=== PATIENT | male | born 1970 | race Caucasian/White ===

== ENCOUNTER 2019-02-07 10:33 | Inpatient (IN) ==
[2019-02-07] MEDS ORDERED: TYLENOL PO ONE (10:56)
[2019-02-07 11:25] LABS: INFLUENZA A NEGATIVE (NEGATIVE); INFLUENZA B NEGATIVE (NEGATIVE)
[2019-02-07 11:27] LABS: BASO# 0.02 X1000 (0.0-0.2); BASO% 0.1 % (0.0-0.8); HEMOGLOBIN 12.8 g/dL (14.0-18.0); IMM GRAN# 0.08 X1000 (0.0-0.04); IMM GRAN% 0.5 % (0.0-0.5); LYMPH# 0.87 X1000 (1.2-3.4); LYMPH% 5.9 % (20.5-51.1); MCHC 35.6 g/dL (33-37); MONO# 1.84 X1000 (0.11-0.59); MONO% 12.4 % (1.7-9.3); MPV 9.5 FL (7.4-10.4); NEUT# 12.02 X1000 (1.4-6.5); NEUT% 81.1 % (42.2-75.2); PLT 230 X1000 (130-400); RDW 12.4 % (11.5-14.5); WBC 14.83 X1000 (4.8-10.8)
[2019-02-07 11:28] LABS: INR 1.14; PROTIME 15.2 Seconds (11.0-16.0)
[2019-02-07 11:35] LABS: BILIRUBIN URINE NEGATIVE (NEGATIVE); BLOOD URINE NEGATIVE (NEGATIVE); CLARITY CLEAR (CLEAR); COLOR YELLOW; GLUCOSE URINE NEGATIVE (NEGATIVE); KETONE URINE TRACE mg/dL (NEGATIVE); LEUKOCYTES URINE 1+ (NEGATIVE); NITRITE URINE NEGATIVE (NEGATIVE); PROTEIN URINE 1+(30 mg/dL) mg/dL (NEGATIVE); SP GRAVITY URINE 1.005; UROBILINOGEN URINE 8 mg/dL
[2019-02-07 11:36] LABS: URINE BACTERIA 2+ /HFP; URINE CAST NONE SEEN /LPF; URINE CRYSTAL NONE SEEN /HPF; URINE EPITHELIAL CELLS <10 /HPF (<10); URINE RBC <10 /HPF (<10); URINE SOURCE CLEAN CATCH; URINE YEAST PRESENT /HPF
[2019-02-07 11:41] LABS: AGAP 14; ALBUMIN 4.3 g/dL (3.5-5.0); ALKALINE PHOSPHATASE 82 U/L (32-122); BUN 15 mg/dL (8-22); CALCIUM 8.8 mg/dL (8.8-10.2); CHLORIDE 99 mmol/L (98-107); CK PROFILE 195 U/L (24-204); COSMO 275; CREATININE 0.9 mg/dL (0.7-1.2); ESTIMATED GFR > 60; GLUCOSE 147 mg/dL (70-104); GOT 26 U/L (10-34); GPT 36 U/L (10-44); POTASSIUM 3.3 mmol/L (3.5-5.1); SODIUM 136 mmol/L (136-145); TCO2 23 mmol/L (25-35); TOTAL PROTEIN 7.1 g/dL (6.3-8.3)
--- NOTE | 2019-02-07 11:43 | Diag Imaging Result Doc PS360 ---
EXAM: CT HEAD W/O CONTRAST INDICATION: HEADACHE TECHNIQUE: This exam was performed using automated exposure control, adjustment of mA or kV according to patient size, and/or use of iterative reconstruction technique. COMPARISON: None. FINDINGS: There is no definite acute infarct given the limited sensitivity of CT versus MRI. There is no discrete intracranial mass, mass effect, or intracranial hemorrhage. There is soft tissue scalp edema on the left with what appears to be a thin subgaleal hematoma. Surrounding soft tissues and bony structures are essentially unremarkable, otherwise. The calvaria is intact. IMPRESSION: 1.No evidence of acute intracranial pathology. 2.Findings suggesting a scalp contusion on the left. Please correlate clinically. Electronically signed by Panfilo Garcia 02/07/2019 11:40 AM
--- NOTE | 2019-02-07 11:45 | Diag Imaging Result Doc PS360 ---
EXAM: CHEST-1 VIEW INDICATION: fever TECHNIQUE: One view COMPARISON: None. FINDINGS: The lungs are grossly clear. There is no discrete pleural fluid collection or pneumothorax. The cardiomediastinal silhouette and central vasculature are grossly unremarkable. IMPRESSION: No evidence of acute pathology by plain radiograph. Electronically signed by Panfilo Garcia 02/07/2019 11:43 AM
[2019-02-07] MEDS ORDERED: NS 1,000 ML IV ONE (11:55)
[2019-02-07] MEDS ORDERED: TORADOL IV ONE (12:54)
--- NOTE | 2019-02-07 13:03 | PROVIDER DOCUMENTATION ---
This chart was entered by Sahil Ross Scribe, acting as scribe for Waleska Hopson MD. HPI-Headache - General Chief Complaint: Headache Stated Complaint: ELEVATED BP HEADACHE Time Seen by Provider: 02/07/19 10:37 Source: patient Allergies/Adverse Reactions: Patient Allergies Allergy/AdvReac Type Severity Reaction Status Date / Time No Known Allergies Allergy Verified 02/07/19 10:39 Home Medications: Home Medication List Medication Instructions Recorded Confirmed Last Taken Type ATORVAstatin [Lipitor] 20 mg PO DAILY 02/07/19 02/07/19 Unknown History Cyclobenzaprine [Flexeril] 10 mg PO TID 02/07/19 02/07/19 Unknown History Meloxicam 15 mg PO DAILY 02/07/19 02/07/19 02/06/19 History Olmesartan/Amlodipin/Hcthiazid 1 ea PO DAILY 02/07/19 02/07/19 Unknown History [Tribenzor 40-5-25 mg Tablet] Pantoprazole Sodium 40 mg PO DAILY 02/07/19 02/07/19 Unknown History - History of Present Illness-Headache Nature of Presenting Problem: Pt is a 48 y/o F presents to the ED with a headache, dizzy, nausea, neck pain, blurry vision. He says he BP at home was 153/103. Pt reports this is the worst headache ever and no hx of headaches. He reports working in a barn with a friend yesterday and after bending over he reports that he felt like the left side of his head was going to blow off. Pt also states 3 days ago he removed a tick from the back of his head. He says he has not taken any tylenol today. Pt denies chest pain, Abdominal pain and SOB. Headache Location: reports: global Quality of Pain: reports: aching Severity: reports: severe Timing: reports: still present Headache Context: reports: nothing Any recent trauma/injury?: reports: none Headache severity at the maximum: worst of life Headache Exacerbated by:: reports: nothing Associated Symptoms: reports: dizziness, confusion, fever/chills, nausea, vision changes. denies: short of breath, loss of consciousness, slurred speech, tingling in legs/feet, trouble walking Similar Symptoms Previously?: No Recently seen or treated by another doctor?: No Review of Systems - Adult - REVIEW OF SYSTEMS - ADULT Constitutional: reports: fever. denies: chills Eyes: reports: no symptoms reported Ears, Nose, Mouth & Throat: denies: ear pain, throat pain Cardiovascular: denies: chest pain, edema Respiratory: reports: no symptoms reported Gastrointestinal: reports: nausea. denies: abdominal pain, vomiting Genitourinary: denies: dysuria, discharge Musculoskeletal: reports: neck pain. denies: back pain Integumentary: reports: no symptoms reported Neurological: reports: dizziness/vertigo, headache/migraines. denies: numbness, slurred speech, syncope Psychiatric: reports: no symptoms reported Endocrine: reports: no symptoms reported Hematologic/Lymphatic: reports: no symptoms reported Allergic/Immunologic: reports: no symptoms reported All Other Systems: Reviewed and Negative Past History - Adult - PAST MEDICAL HISTORY-ADULT Review of Records: reports: Old Records Reviewed, Nursing Assessment Review, Medications Reviewed - SOCIAL HISTORY Substance Use: none/never Living Situation: family Physical Exam- Neurological - Physical Exam-Neuro Initial Vital Signs Reviewed: Yes General Appearance: alert, no apparent distress Eye Exam: bilateral eye: normal inspection, PERRL, EOMI HENMT: moist mucous membranes, normal ENT inspection, pharynx normal Head Injury: no evidence of injury. negative: active bleeding Neck: full range of motion, supple, normal inspection. 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 Exam: normal hearing, normal speech, PERRL Coordination/Gait: normal finger to nose, normal gait Motor/Sensory: no motor deficit, no sensory deficit, no pronator drift Neurologic: grossly normal, no motor/sensory deficits Integumentary: normal color, normal turgor, diaphoresis Psych/Mental Status: normal mood/affect, normal thought content, normal thought process, oriented x 3 - Glascow Coma Scale Best Eye Response: (4) open spontaneously Best Verbal Response: (5) oriented Best Motor Response: (6) obeys commands Total Glascow Score: 15 Progress - PLAN OF CARE/RESULTS Progress/Plan/Lab Results: Vital Signs - 8 hr 02/07/19 10:36 02/07/19 12:00 02/07/19 13:28 Temperature 102.1 F H 99.9 F H 98.5 F Pulse Rate 96 H 72 70 Respiratory Rate 20 18 20 Blood Pressure 128/72 123/64 147/66 O2 Sat by Pulse Oximetry 96 95 97 Laboratory Results - last 24 hr 02/07/19 02/07/19 02/07/19 10:44 10:44 10:44 WBC 14.83 H RBC 4.00 L Hgb 12.8 L Hct 36.0 L MCV 90.0 MCH 32.0 H MCHC 35.6 RDW Std Deviation 12.4 Plt Count 230 MPV 9.5 Immature Gran % (Auto) 0.5 Neut % (Auto) 81.1 H Lymph % (Auto) 5.9 L [place] % (Auto) 12.4 H Eos % (Auto) 0.0 Baso % (Auto) 0.1 Immature Gran # (Auto) 0.08 H Neut # (Auto) 12.02 H Lymph # (Auto) 0.87 L [place] # (Auto) 1.84 H Eos # (Auto) 0.00 Baso # (Auto) 0.02 PT 15.2 INR 1.14 PTT (Actin FS) 30.0 Sodium 136 Potassium 3.3 L Chloride 99 Carbon Dioxide 23 L Anion Gap 14 BUN 15 Creatinine 0.9 Estimated GFR/1.73 m2 > 60 BUN/Creatinine Ratio 17 Glucose 147 H Calculated Osmolality 275 Calcium 8.8 Total Bilirubin 1.30 H AST 26 ALT 36 Alkaline Phosphatase 82 Creatine Kinase 195 Troponin T Total Protein 7.1 Albumin 4.3 Globulin 3.0 Albumin/Globulin Ratio 2.0 Plasma Lactate Urine Source Urine Color Urine Clarity Urine pH Ur Specific [place] Urine Protein Urine Ketones Urine Blood Urine Nitrite Urine Bilirubin Urine Urobilinogen Urine Microscopic RBC Urine WBC Urine Microscopic WBC Ur Epithelial Cells Urine Crystals Urine Bacteria Urine Casts Urine Yeast Urine Glucose Influenza A (Rapid) Influenza B (Rapid) 02/07/19 02/07/19 02/07/19 10:44 10:44 10:44 WBC RBC Hgb Hct MCV MCH MCHC RDW Std Deviation Plt Count MPV Immature Gran % (Auto) Neut % (Auto) Lymph % (Auto) [place] % (Auto) Eos % (Auto) Baso % (Auto) Immature Gran # (Auto) Neut # (Auto) Lymph # (Auto) [place] # (Auto) Eos # (Auto) Baso # (Auto) PT INR PTT (Actin FS) Sodium Potassium Chloride Carbon Dioxide Anion Gap BUN Creatinine Estimated GFR/1.73 m2 BUN/Creatinine Ratio Glucose Calculated Osmolality Calcium Total Bilirubin AST ALT Alkaline Phosphatase Creatine Kinase Troponin T < 0.010 Total Protein Albumin Globulin Albumin/Globulin Ratio Plasma Lactate 1.0 Urine Source CLEAN CATCH Urine Color YELLOW Urine Clarity CLEAR Urine pH 7.0 Ur Specific [place] 1.005 Urine Protein 1+(30 mg/dL) A Urine Ketones TRACE Urine Blood NEGATIVE Urine Nitrite NEGATIVE Urine Bilirubin NEGATIVE Urine Urobilinogen 8 Urine Microscopic RBC <10 Urine WBC 1+ A Urine Microscopic WBC 10-20 A Ur Epithelial Cells <10 Urine Crystals NONE SEEN Urine Bacteria 2+ Urine Casts NONE SEEN Urine Yeast PRESENT Urine Glucose NEGATIVE Influenza A (Rapid) Influenza B (Rapid) 02/07/19 10:51 WBC RBC Hgb Hct MCV MCH MCHC RDW Std Deviation Plt Count MPV Immature Gran % (Auto) Neut % (Auto) Lymph % (Auto) [place] % (Auto) Eos % (Auto) Baso % (Auto) Immature Gran # (Auto) Neut # (Auto) Lymph # (Auto) [place] # (Auto) Eos # (Auto) Baso # (Auto) PT INR PTT (Actin FS) Sodium Potassium Chloride Carbon Dioxide Anion Gap BUN Creatinine Estimated GFR/1.73 m2 BUN/Creatinine Ratio Glucose Calculated Osmolality Calcium Total Bilirubin AST ALT Alkaline Phosphatase Creatine Kinase Troponin T Total Protein Albumin Globulin Albumin/Globulin Ratio Plasma Lactate Urine Source Urine Color Urine Clarity Urine pH Ur Specific [place] Urine Protein Urine Ketones Urine Blood Urine Nitrite Urine Bilirubin Urine Urobilinogen Urine Microscopic RBC Urine WBC Urine Microscopic WBC Ur Epithelial Cells Urine Crystals Urine Bacteria Urine Casts Urine Yeast Urine Glucose Influenza A (Rapid) NEGATIVE Influenza B (Rapid) NEGATIVE Orders Category Date Time Status Cardiac Monitoring DIRECTED Care 02/07/19 10:58 Active IV Insertion ORDERED Care 02/07/19 10:58 Completed Notify MD of + Sepsis Screen NOW Care 02/07/19 10:58 Active Notify Physician As Ordered Care 02/07/19 10:58 Active CHEST-1 VIEW [RAD] Stat Exams 02/07/19 10:[address] HEAD W/O CONTRAST [CT] Stat Exams 02/07/19 11:01 Completed BLOOD CULTURE [BLDCUL] Stat Lab 02/07/19 10:58 Ordered CBC WITH DIFF [HEME] Stat Lab 02/07/19 10:44 Completed CK PROFILE [SP CHEM] Stat Lab 02/07/19 10:44 Completed COMPREHENSIVE METABOLIC PANEL [CHEM] Stat Lab 02/07/19 10:[address] Stat Lab 02/07/19 10:51 Completed LACTATE, PLASMA [CHEM] Lab 02/07/19 10:44 Completed LACTATE, PLASMA [CHEM] Lab 02/07/19 14:00 Uncollected LACTATE, PLASMA [CHEM] Lab 02/07/19 17:00 Uncollected PROTIME WITH INR [COAG] Stat Lab 02/07/19 10:44 Completed PTT [COAG] Stat Lab 02/07/19 10:44 Completed TROPONIN T Stat Lab 02/07/19 10:[address] W/POSS RFLX CULT [URINALYSIS] Stat Lab 02/07/19 10:44 Completed URINE CULTURE [RM] Routine Lab 02/07/19 11:36 Ordered 0.9% Sodium Chloride Inj [Ns] 1,000 ml Med 02/07/19 11:55 Discontinued IV 999 mls/hr Acetaminophen [Tylenol] Med 02/07/19 10:56 Discontinued 1,000 mg PO NOW ONE CefTRIAXONE [Rocephin] 2 gm Med 02/07/19 13:17 Discontinued 0.9% Sodium Chloride Inj [Ns] 50 ml IV NOW Ketorolac [Toradol] Med 02/07/19 12:54 Discontinued 30 mg IV NOW ONE Oxygen Device Stat Oth 02/07/19 10:58 Active A lumbar puncture was discess with the patient and he declined. Result Diagrams: 02/07/19 10:44 02/07/19 10:44 - REASSESSMENT Reassessment #1 Time Reassessed: 12:50 Status: improving (PT FEELING A LITTLE BETTER.) - XRAY 1 XRAY Study: Chest Impression: Normal ( EXAM: CHEST-1 VIEW INDICATION: fever TECHNIQUE: One view COMPARISON: None. FINDINGS: The lungs are grossly clear. There is no discrete pleural fluid collection or pneumothorax. The cardiomediastinal silhouette and central vasculature are grossly unremarkable. IMPRESSION: No evidence of acute pathology by plain radiograph. Electronically signed by Panfilo Garcia 02/07/2019 11:43 AM 02/07/19 1143 Interpreting Physician: Panfilo Garcia MD Dictated Date/Time: 02/07/19 1143 cc: Waleska Hopson MD; Heath Tsang MD) - CT/MRI 1 CT Study: Head Impression: Abnormal (EXAM: CT HEAD W/O CONTRAST INDICATION: HEADACHE TECH NIQUE: This exam was performed using automated exposure control, adjustment of mA or kV according to patient size, and/or use of iterative reconstruction technique. COMPARISON: None. FINDINGS: There is no definite acute infarct given the limited sensitivity of CT versus MRI. There is no discrete intracranial mass, mass effect, or intracranial hemorrhage. There is soft tissue scalp edema on the left with what appears to be a thin subgaleal hematoma. Surrounding soft tissues and bony structures are essentially unremarkable, otherwise. The calvaria is intact. IMPRESSION: 1.No evidence of acute intracranial pathology. 2.Findings suggesting a scalp contusion on the left. Please correlate clinically. Electronically signed by Panfilo Garcia 02/07/2019 11:40 AM) - CONSULTS/PCP/HOSPITALIST Notification #1 *Consult/PCP/Hospitalist*: Hospitalist- Dr Cortes Time Discussed: 13:50 Reason/Comments: admission Consult Disposition: Admit (accepts) Departure - Departure Date of Disposition Decision: 02/07/19 Time of Disposition Decision: 13:51 DIAGNOSIS: Meningitis, Tick bite of scalp, UTI (urinary tract infection) Disposition: ADMITTED INPATIENT 09 Certified Medical Emergency: Emergent Condition: Stable Referrals and Follow-Ups: Heath Tsang MD [Primary Care Provider] - - Critical Care Note This patient required my direct & personal management of CC.: No Attestation - Physician/ JOSÉ MIGUEL Attestation Patient care was provided by Advanced Practice Provider:: No The physician spent face to face time with patient:: Yes Advanced Practice Provider documentation review:: Supervising physician onsite and consulted in the evaluation and care of this patient. The physician did have a face to face encounter with the patient. This chart was documented by the indicated scribe, (Sahil Ross Scribe) and accurately reflects the services I performed and decisions made by me, Waleska Varela MD, as attested by the provider's signature.
[2019-02-07] MEDS ORDERED: ROCEPHIN 2 GM in NS 50 ML IV ONE (13:17)
[2019-02-07] MEDS ORDERED: VANCOMYCIN IV PER PHARMACY MISC SCH (14:45)
[2019-02-07] MEDS ORDERED: NS 1,000 ML IV SCH (14:45)
[2019-02-07] MEDS ORDERED: ZOFRAN IV PRN (14:49)
[2019-02-07] MEDS ORDERED: TYLENOL PO PRN (14:49)
[2019-02-07] MEDS ORDERED: NS IV SCH ×3 (14:57→16:00)
[2019-02-07] MEDS ORDERED: ZOVIRAX IV SCH ×3 (14:57→16:00)
[2019-02-07] MEDS ORDERED: NORVASC PO SCH (15:00)
[2019-02-07] MEDS ORDERED: DOXYCYCLINE PO SCH (15:00)
[2019-02-07] MEDS ORDERED: APRESOLINE IV PRN ×2 (15:32→16:05)
[2019-02-07] MEDS ORDERED: NS + KCL 20 MEQ 1,000 ML IV SCH ×2 (15:35→17:00)
[2019-02-07] MEDS ORDERED: NORVASC PO ONE (16:15)
[2019-02-07] MEDS: VANCOMYCIN 2,000 MG in NS 500 ML IV SCH (16:21)
[2019-02-07] MEDS ORDERED: VANCOMYCIN 2,000 MG in NS 500 ML IV SCH (17:00)
--- NOTE | 2019-02-07 17:11 | HISTORY AND PHYSICAL ---
CHIEF COMPLAINT: Headache, fever. HISTORY OF PRESENT ILLNESS: A 48-year-old male with a past medical history of hypertension, dyslipidemia presented to the emergency department with the chief complaint of headache, dizziness, nausea that started yesterday in the afternoon, associated with neck pain, blurry vision/photophobia, fever and. As as per the patient, he was working yesterday in the afternoon and he started having a strong headache mostly on the left side of the head. So he went home and tried to rest himself. He took a Tylenol. He went home to try to rest, he took a Tylenol but he continues having headache, fever and chills. Today, in the morning the noticed that this patient also was a little bit confused, so they decided to come to the emergency department. As per the , 8 to 9 days ago a tick was removed from the back of his head on the left side, and apparently the tick probably was there for a couple days before removal. Because all the symptoms including headache, confusion, nausea, chills, fever and some neck pain, we decided to go ahead and give him a high dose off ceftriaxone and start this patient on vancomycin. I personally contacted Dr. Hines from Infectious Disease Department who suggested also to start this patient on acyclovir 10 mg/kg every 8 hours and also doxycycline which can be given p.o. In the emergency department, the ER doctor offered to perform a LP, but the patient refused due to his back surgeries. He does have some metal in his back. In the emergency department, he was found to have a temperature of 102.1, white blood cell of 14.8, potassium level of 3.3 and a slightly elevated bilirubin of 1.3 with normal LFTs. Urinalysis showed some protein, white blood cell and 2+ bacteria, but he does not have urinary symptoms. We are going to get a blood culture and urine culture as well. This patient will be transferred to [facility] for evaluation. He will be evaluated by Infectious Disease Department hopefully in the morning and I already talked to the patient and the at the bedside about performing a lumbar puncture tomorrow with interventional radiologist. He seems to be stable at this moment. He is completely alert and oriented x 3, mild headache. The patient denies abdominal pain, diarrhea, constipation, chest pain, any focal weakness. REVIEW OF SYSTEMS: All the 14 points of review of systems were reviewed. All of them negative except as per HPI. 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 PAST FAMILY HISTORY: Mother with heart valve problems/replacement, history of C. difficile, dementia. Father with lung cancer and brother with throat cancer. SURGICAL HISTORY: This patient had 2 back surgeries, one of them they put a cage and the other one some hardware. Right knee surgery and right shoulder surgery as well. SOCIAL HISTORY: The patient denies tobacco and drugs, he drinks every night around 3 to 5 ounces of whiskey or bourbon, and occasionally he can drink a beer. ALLERGIES: No known allergies. BLOOD TRANSFUSIONS: None. HOME MEDICATIONS: Lipitor 20 mg p.o. daily, Flexeril 10 mg p.o. t.i.d., meloxicam 15 mg p.o. daily, olmesartan/amlodipine/hydrochlorothiazide 40/5/25 mg tablet p.o. daily, pantoprazole 40 mg p.o. daily. PHYSICAL EXAMINATION: VITAL SIGNS: Temperature 98.5, pulse 70, respiratory rate 20, blood pressure 147/66, oxygen saturation 97% on room air, but earlier around 10:36 a.m. his temperature was 102.1. HEENT: Head normocephalic. He has small and multiple lesions on his head from small trauma and/or scratch, they do not look infected. Also, he does have a wound of around 1 cm long, linear, with no signs of infection, but it is moist at the level of the left occipital area where apparently the tick was. PERRLA, but his left eye is pinkish compared with the right eye. NECK: Neck. Is painful to palpation mostly on the sides, Kernig and Brudzinski are negative. CHEST: Clear to auscultation. No wheezing. No rales. CARDIOVASCULAR: RRR. ABDOMEN: Soft, nontender, nondistended. Protuberant. Positive bowel sounds. EXTREMITIES: No edema, no clubbing, no cyanosis. I do not see any rash. I do not see any redness. NEUROLOGIC: At this moment this patient is alert and oriented x3. No focal neurological deficits. LABORATORY: WBC 14.8, hemoglobin 12.8, hematocrit 36, platelets 230,000. Sodium 136, potassium 3.3, chloride 99, bicarbonate 23, BUN 15, creatinine 0.9, glucose 147, calcium 8.8, bilirubin 1.3, AST 26, ALT 36, alkaline phosphatase 82. Troponins negative. Albumin 4.3. Urine analysis: Urine protein 1+, WBC 1+, urine microscopic white blood cells 10 to 20, bacteria 2+ and yeast present. ASSESSMENT AND PLAN: 1. Headache, fever, dizziness and confusion concerning for meningitis, I will start treating this patient with vancomycin and ceftriaxone. Also, because of the history of the tick on his head I will start this patient on doxycycline p.o., I had a conversation with Infectious Disease Department who suggested to start this patient on acyclovir as well 10 mg/kg every 8 hours. He seems to be stable right now. He is oriented at this moment, but as per the he was confused in the morning. He is complaining of neck pain, even though he is not rigid. I would like to perform an LP with Radiology tomorrow. As per the ED doctor, he refused an LP at this moment due to his previous history of back surgery. I will place this patient on IV fluids and he will be evaluated hopefully in the morning by the Infectious Disease doctor. 2. Hypertension, I will hold for now his hydrochlorothiazide and olmesartan since I am going to treat this patient with acyclovir, which can be nephrotoxic. I will continue with amlodipine, schedule hydralazine as needed. 3. Dyslipidemia. Continue with atorvastatin. 4. His recent history of tick bite. For this we are going to start this patient on doxycycline, I do not see any rash and I do not think the lesion is infected. The thick has been removed around 8 days ago, we have requested a tick-bourne panel. 5. Dehydration, I will continue with IV fluids. This patient already received IV fluids in the emergency department. 6. Hypokalemia. I will add potassium chloride to his normal saline and I will monitor the chemistry on a daily basis. 7. Case has been discussed with the patient and his who is at the bedside. They agree with the treatment. They agree with the lumbar function with Radiology. I notified the Infectious Disease doctor about the patient, I am not quite sure if he has a meningitis, but given his symptoms of headache, blurry vision/photophobia, fever, nausea and confusion, I will treat for it. Further recommendations pending hospital course. cc: Bj Aguillon MD
[2019-02-07] MEDS: TYLENOL PO PRN ×2 (17:46→21:06)
[2019-02-07] MEDS: DOXYCYCLINE PO SCH (17:46)
[2019-02-07] MEDS ORDERED: ULTRAM PO ONE (18:01)
[2019-02-07] MEDS ORDERED: ROCEPHIN 2 GM in NS 50 ML IV SCH (21:00)
[2019-02-08] MEDS: ZOVIRAX IV SCH ×3 (00:32→17:53)
[2019-02-08] MEDS: NS IV SCH ×3 (00:32→17:53)
[2019-02-08] MEDS: TYLENOL PO PRN ×3 (03:39→18:01)
[2019-02-08] MEDS: ROCEPHIN 2 GM in NS 50 ML IV SCH ×2 (03:39→14:42)
[2019-02-08] MEDS: VANCOMYCIN 2,000 MG in NS 500 ML IV SCH (04:40)
[2019-02-08] MEDS: PROTONIX PO SCH (06:08)
[2019-02-08 07:15] LABS: BASO# 0.02 X1000 (0.0-0.2); BASO% 0.2 % (0.0-0.8); EOS# 0.01 X1000 (0.0-0.7); EOS% 0.1 % (0.0-10.0); HEMATOCRIT 33.3 % (42.0-52.0); HEMOGLOBIN 11.4 g/dL (14.0-18.0); IMM GRAN# 0.05 X1000 (0.0-0.04); IMM GRAN% 0.5 % (0.0-0.5); LYMPH# 0.93 X1000 (1.2-3.4); LYMPH% 8.5 % (20.5-51.1); MCH 31.4 PG (27-31); MCHC 34.2 g/dL (33-37); MCV 91.7 FL (81-99); MONO# 0.93 X1000 (0.11-0.59); MONO% 8.5 % (1.7-9.3); MPV 9.8 FL (7.4-10.4); NEUT# 8.98 X1000 (1.4-6.5); NEUT% 82.2 % (42.2-75.2); PLT 204 X1000 (130-400); RBC 3.63 XMIL (4.7-6.1); RDW 12.7 % (11.5-14.5); WBC 10.92 X1000 (4.8-10.8)
[2019-02-08 07:28] LABS: INR 1.24; PROTIME 16.6 Seconds (11.0-16.0); PTT 35.4 Seconds (22.3-41.8)
[2019-02-08 07:40] LABS: AGAP 12; ALB/GLOB RATIO 1.1; ALBUMIN 3.3 g/dL (3.5-5.0); ALKALINE PHOSPHATASE 64 U/L (32-122); BUN 12 mg/dL (8-22); CALCIUM 8.2 mg/dL (8.8-10.2); CHLORIDE 99 mmol/L (98-107); CK PROFILE 111 U/L (24-204); COSMO 271; CREATININE 0.8 mg/dL (0.7-1.2); ESTIMATED GFR > 60; GLUCOSE 114 mg/dL (70-104); GOT 19 U/L (10-34); GPT 24 U/L (10-44); MAGNESIUM 1.7 mg/dL (1.5-2.7); SODIUM 135 mmol/L (136-145); TCO2 24 mmol/L (25-35); TOTAL BILIRUBIN 0.95 mg/dL (0.20-1.00); TOTAL PROTEIN 6.3 g/dL (6.3-8.3)
--- NOTE | 2019-02-08 08:37 | INFECTIOUS DISEASE CONSULT REP ---
DATE: 02/08/2019 CONCLUSION: The patient is admitted to the hospital with what I think is a meningoencephalitis, the exact etiology of which is uncertain to me. I doubt that the patient is having a bacterial meningitis. The patient did have a tick bite on his head approximately 2 weeks ago, and possibly the meningoencephalitis is secondary to some tick-borne illness. RECOMMENDATIONS: I discussed the patient with Dr. Cortes, and we agreed to start the patient on a combination of Rocephin at a high dose, like 2 grams every 12 hours, vancomycin, intravenous acyclovir, and oral doxycycline. After seeing the patient this morning, I have discontinued the vancomycin because he, to me, appears better, and I doubt that he has a bacterial meningitis in view of how he is getting better, I think rather quickly. I discussed with the patient doing a spinal tap. I told him that I felt it would be indicated for two reasons, one to see possibly what the organism is that is causing the infection, and two, to rule out certain diseases, such as a bacterial meningitis or a herpes encephalitis. The patient has agreed to doing the spinal tap, and for that, I have consulted Dr. Payne to evaluate the patient and do an LP. I have ordered studies on the spinal fluid, including cell count, glucose, protein, Gram stain, culture, and also for the meningitis encephalitis panel. DISCUSSION: The patient tells me that about 2 weeks ago, he had a tick bite on his head. The patient's told him that the tick had not been removed, and so she took a tweezers and tried to manually remove the tick head with that. About 3 days ago, the patient started having a headache, fever, and stiff neck. He was admitted to the hospital yesterday. He still is having fever, but it appears to be coming down, and his headache has improved quite a bit, as well as his neck stiffness. The patient initially had a white blood cell count on his CBC of 14,830, and today the white blood cell count is 10,920 with 82% neutrophils, hemoglobin is 11.4, and platelet count is 204,000. The patient's creatinine is 0.9. GFR is greater than 60. Liver function studies are normal, except for a bilirubin of 1.3. The patient's chest x-ray shows no acute disease. CT scan of the head shows no intracranial pathology. There was an area on the scalp where there was a contusion, and this correlates where the patient's tried to dig out the ticks head with a tweezers. PAST MEDICAL HISTORY/REVIEW OF SYSTEMS: Eyes and Ears: He does not have any problem hearing or seeing. Neck: He did complain of stiffness, but by today, he is able to move his neck without pain. Respiratory: No cough or shortness of breath. Cardiac: No chest pain or palpitations. GI: No nausea, vomiting, or diarrhea. Genitourinary: No dysuria or flank pain. Integument: No rash. Neurologic: See present illness. PREVIOUS HOSPITALIZATIONS AND OPERATIONS: The patient has had surgery on his knee. He has had a rotator cuff repair. He has had two laminectomies, and there is metal in his spine. He has had a tonsillectomy and an appendectomy. MEDICAL DISEASES: Positive for hypertension, hyperlipidemia, and gastroesophageal reflux disease. INFECTIOUS DISEASE HISTORY: Positive for pneumonia. Negative for UTI. FAMILY HISTORY: Positive for diabetes mellitus, hypertension, myocardial infarction, stroke, and cancer. SOCIAL HISTORY: [place] . He works at a [employer]. The patient does not have any pets at home. He occasionally drinks alcoholic beverages, but does not smoke cigarettes or abuse drugs. ALLERGIES: He has no drug allergies. HOME MEDICATIONS: Include Lipitor, Flexeril, meloxicam, Tribenzor, and pantoprazole. PHYSICAL EXAMINATION: Vital Signs: Yesterday, the patient's temperature was 102.8 degrees, this morning it is 100.4 degrees, pulse 94, respirations 18, blood pressure 126/63. The patient weighs 280 pounds. General: This is an obese, middle-aged male. He does not appear to be in any acute distress this morning. HEENT: He can hear my spoken words and see near objects. He does not have any white coating on his tongue. There is no drainage from his nose or ears. In the left posterior part of the scalp, there is an indurated area where the patient's attempted to remove the tick's head. Neck: There was no meningismus. Lungs: Clear to auscultation. Cardiovascular: Regular heart rate. Abdomen: Soft and nontender. Integument: No rash. Neurologic: The patient is alert. He can move his extremities. There is no tremor. His sensation is intact to touch. His memory as regarding his medical history is intact. Thank you for the consult. cc: Adam Hines MD
[2019-02-08] MEDS ORDERED: ROCEPHIN 2 GM in NS 50 ML IV SCH (09:00)
[2019-02-08] MEDS ORDERED: LIPITOR PO SCH (09:00)
[2019-02-08] MEDS: DOXYCYCLINE PO SCH ×3 (10:58→21:42)
[2019-02-08] MEDS: LIPITOR PO SCH (10:58)
[2019-02-08] MEDS: NORVASC PO SCH (10:58)
[2019-02-08] MEDS ORDERED: KLOR-CON PO ONE (12:04)
[2019-02-08] MEDS ORDERED: VANCOMYCIN IV PER PHARMACY MISC SCH (12:45)
[2019-02-08] MEDS ORDERED: POTASSIUM CHLORIDE 40 MEQ in NS 1,000 ML IV ONE (12:51)
--- NOTE | 2019-02-08 13:15 | PROGRESS NOTE ---
DATE: 02/08/2019 SUBJECTIVE: The patient has no major complaints. He is still having some headache and facial tenderness. His is concerned that the left side of his face is swollen whereas previously his right side of his face was swollen. OBJECTIVE: Vitals: Temperature has been as high as 102.8. That was this morning at 4 a.m. It was 102.1 day before, so persistently febrile. General: He came in with headache and confusion. White count was 14,000. He is now on multiple medications. Antibiotics for every possible cause of meningitis with the exception of cryptococcosis. Cardiovascular: Regular rate and rhythm. Pulmonary: Bilateral breath sounds clear to auscultation. GI: Was soft, nontender, nondistended. Integument: To me, he has facial swelling and I would even say the beginnings of cellulitis involving his frontal area, parietal area of his scalp. He has clear fluid, but he has kind of honey-colored crusting that is starting to take place on the top portion of his scalp. I do not feel like this is herpetic. It is certainly possible, but it looks more like an impetigo or impetiginous lesions. It does not frankly look like erysipelas, but I am not entirely sure. He has a couple of small lacerations, but I am not entirely sure if this may not be a scalp cellulitis arising from his tick bite. It could be hematoma, but it does not have that characteristic. LABORATORY DATA/IMAGING: His white count is down to 10, hemoglobin and hematocrit 11 and 33, platelets 204,000. Coagulase were mildly elevated 1.24. Potassium is 3. All cultures are negative, flu, blood, urine. Head CT was negative. Attempts were made at LP today per Dr. Payne. Greatly appreciate his assistance. We are waiting on those results. PROBLEMS: 1. Fever of unknown origin. There is certainly concern over meningitis, but I am concerned he may have scalp cellulitis or even early impetigo. He has been placed on acyclovir and Rocephin I believe per Dr. Cortes and Dr. Hines. I am going to continue vancomycin because I do not know at this point if it is a staph infection that is possible. I will repeat his head CT with contrast to better delineate that. 2. Hypokalemia. We will continue treatment and follow. 3. Hypertension. We will continue his regular medications and monitor. DISPOSITION: Pending his clinical status. cc: Lazaro Nieves MD
--- NOTE | 2019-02-08 14:39 | Diag Imaging Result Doc PS360 ---
EXAM: CT HEAD W/CONTRAST HISTORY: scalp cellulitis TECHNIQUE: CT head without contrast COMPARISON: 02/07/2019 FINDINGS: No parenchymal hemorrhage. No epidural or subdural hematoma. No subarachnoid hemorrhage. No mass or midline shift no enhancing lesion on the post contrasted images. No hydrocephalus. No sinus opacification and no scalp abnormality identified. IMPRESSION: Negative exam. This exam was performed using automated exposure control, adjustment of mA or kV according to patient size, and/or use of iterative reconstruction technique. Electronically signed by Kenneth Tripp 02/08/2019 2:36 PM
--- NOTE | 2019-02-08 14:39 | CONSULTATION ---
DATE OF CONSULTATION: 02/08/2019 HISTORY: Mr. Lilly is [id number], and he presented with headache, neck stiffness, elevated WBC, fever and reported confusion. He reports no prior significant headache. He has not had recent head injury. He has never had diagnosed stroke, seizure, or other neurologic event. He had fairly abrupt onset of headache 2 days ago. Initially, he was alert, oriented and appropriate. He noted some soreness in the neck and sense of fever. Temperature recorded here was 102.1 initially, as high as 102.8, down to 99.6 on last check. WBC count was initially 14,830, later 10,920. There was evidence of urine infection. Chemistry is unremarkable. Noncontrast CT of the head was unremarkable. There is history that he had found a tick attached to his scalp about 10 days ago, and that was removed. There was not immediate fever, rash, or other residual. He has been treated with antibiotics and has defervesced. Headache is improved, but still present. He reports headache has often been worse on standing, particularly worse as he stood to pull his pants up after sitting on the toilet. He has not had altered consciousness, altered awareness, or unresponsiveness. PHYSICAL EXAMINATION: On exam, he is awake, alert, attentive, and appropriate. Head and neck are unremarkable. There is not definite meningismus. Visual suther[place] are full. Extraocular movements are full. Facial motility is symmetric. Tongue is midline. He used his arms and legs appropriately, right and left equally. Limb tone is symmetric. I did not test his gait. IMPRESSION: Fever, headache, neck stiffness, and elevated WBC. There is report of transient confusion, but I do not have firsthand history right now and he is cognitively intact now. All of this is concerning for [employer] infection. He looks good now and that is encouraging. I agree with Dr. Hines that CSF exam would be helpful. Thanks for asking Neurology to see Mr. Lilly. cc: MD CIERA Muniz III
--- NOTE | 2019-02-08 14:46 | OPERATIVE NOTE ---
PROCEDURE DATE: 02/08/2019 Lumbar puncture was attempted at L4 space. Initially, bloody fluid was obtained and fluid did not clear. Needle was adjusted, and fluid continued to be bloody. This appeared to be "traumatic tap" with blood introduced by the LP needle and not bloody CSF. I withdrew the needle, and went one segment lower and again obtained bloody fluid which did not clear. Small sample was sent to the lab. I think this is mostly clotted blood, but we will see if any CSF can be discerned and tested. cc: Bogdan Payne III, MD
[2019-02-08] MEDS ORDERED: VANCOMYCIN 2,000 MG in NS 500 ML IV SCH (17:00)
--- NOTE | 2019-02-08 17:31 | INFECTIOUS DISEASE CONSULT REP ---
DATE: 02/08/2019 ADDENDUM: Since I saw the patient this morning his forehead and face are more erythematous and swollen and there is a yellowish liquid coming from the skin. The patient is on Rocephin in a high dose, which should give good treatment for group A strep. The patient is on vancomycin and I have discontinued it and put on Zyvox instead. Both will cover the Staph aureus including methicillin-resistant Staphylococcus aureus, but I wanted to stop vancomycin because the patient is on high dose IV acyclovir and both of those can cause renal toxicity. Therefore, I stopped vancomycin and added Zyvox which has good activity against Staph aureus including methicillin- resistant Staph aureus and it does not have any renal toxicity. A culture from one of the draining areas on the scalp has been obtained. cc: Adam Hines MD
[2019-02-08] MEDS: ZYVOX PO SCH (18:01)
[2019-02-08] MEDS: ZOFRAN IV PRN (19:02)
[2019-02-09] MEDS: ROCEPHIN 2 GM in NS 50 ML IV SCH ×2 (02:00→15:31)
[2019-02-09] MEDS: NS IV SCH ×3 (02:17→17:13)
[2019-02-09] MEDS: ZOVIRAX IV SCH ×3 (02:17→17:13)
[2019-02-09] MEDS: TYLENOL PO PRN ×2 (06:18→15:47)
[2019-02-09] MEDS: ZYVOX PO SCH ×2 (06:18→17:15)
[2019-02-09] MEDS: PROTONIX PO SCH (06:19)
[2019-02-09 07:15] LABS: BASO# 0.02 X1000 (0.0-0.2); BASO% 0.2 % (0.0-0.8); EOS# 0.04 X1000 (0.0-0.7); EOS% 0.4 % (0.0-10.0); HEMATOCRIT 33.5 % (42.0-52.0); HEMOGLOBIN 11.6 g/dL (14.0-18.0); IMM GRAN# 0.09 X1000 (0.0-0.04); IMM GRAN% 0.9 % (0.0-0.5); LYMPH# 1.12 X1000 (1.2-3.4); LYMPH% 11.1 % (20.5-51.1); MCH 31.3 PG (27-31); MCHC 34.6 g/dL (33-37); MCV 90.3 FL (81-99); MONO# 1.28 X1000 (0.11-0.59); MONO% 12.7 % (1.7-9.3); MPV 9.9 FL (7.4-10.4); NEUT% 74.7 % (42.2-75.2); PLT 205 X1000 (130-400); RBC 3.71 XMIL (4.7-6.1); RDW 12.7 % (11.5-14.5); WBC 10.05 X1000 (4.8-10.8)
[2019-02-09 07:30] LABS: AGAP 12; BUN 10 mg/dL (8-22); CALCIUM 8.3 mg/dL (8.8-10.2); CHLORIDE 100 mmol/L (98-107); COSMO 273; CREATININE 0.7 mg/dL (0.7-1.2); ESTIMATED GFR > 60; GLUCOSE 135 mg/dL (70-104); POTASSIUM 3.3 mmol/L (3.5-5.1); SODIUM 136 mmol/L (136-145); TCO2 24 mmol/L (25-35)
[2019-02-09] MEDS: NORVASC PO SCH (08:58)
[2019-02-09] MEDS: LIPITOR PO SCH (08:58)
[2019-02-09] MEDS: DOXYCYCLINE PO SCH ×2 (08:58→21:30)
[2019-02-09] MEDS ORDERED: KLOR-CON PO ONE ×2 (09:42→11:29)
--- NOTE | 2019-02-09 10:46 | Diag Imaging Result Doc PS360 ---
EXAM: LUMBAR PUNCT W/FLURO GUIDE 02/09/2019 HISTORY: meningitis TECHNIQUE: 18 mGy COMMENT: The risks and benefits of the procedure including the possibility of bleeding, infection, reaction to lidocaine, and spinal headache was discussed with the patient and he agreed to the procedure. Following sterile preparation of the skin posteriorly over the L2-3 level, and administration of 1% lidocaine to the skin and deeper soft tissues, a 22-gauge spinal needle was inserted into the lumbar subarachnoid space and subsequently an opening pressure of 24 cm of water was measured. Four tubes of clear and colorless cerebrospinal fluid were collected, with 1 mL or more of fluid in each tube. There are no immediate complications. IMPRESSION: Successful fluoroscopically guided lumbar puncture. Electronically signed by Fox Carver 02/09/2019 10:43 AM
[2019-02-09 14:38] LABS: GLUCOSE CSF 92 mg/dL (39-75); PROTEIN CSF 62.8 mg/dL (15-45)
[2019-02-09 14:44] LABS: APPEARANCE CLEAR; RBC BF 1 /cumm; WBC BF 1 /cumm
--- NOTE | 2019-02-09 15:15 | PROGRESS NOTE ---
DATE: 02/09/2019 SUBJECTIVE: Mr. Lilly had fluoroscopic-guided lumbar puncture earlier today. CSF was reported clear. The spinal fluid glucose is 92 compared to serum glucose 135 earlier this morning. Spinal fluid protein is 62.8. There was 1 red cell and 1 white cell. Other reports are pending. He reports no significant soreness in his back following failed LP yesterday. I do not have any new thoughts from Neurology standpoint. If he has persistent headache or new neurologic problem, I will be glad to see him again. I will sign off for now. cc: Bogdan Payne III, MD
[2019-02-09] MEDS: BENADRYL PO PRN (15:47)
[2019-02-09] MEDS: ZOFRAN IV PRN (15:47)
--- NOTE | 2019-02-09 16:28 | INFECTIOUS DISEASE PROGRESS NO ---
DATE: 02/09/2019 PRESENT ILLNESS: The patient was admission was initially admitted to the hospital with what we all thought was due to a meningoencephalitis. The symptoms from this have cleared and now it appears the patient has a facial and head cellulitis. MEDICATIONS: The patient currently is receiving IV acyclovir, IV Rocephin, and p.o. doxycycline, and p.o. Zyvox. PHYSICAL EXAMINATION: Vital Signs: Temperature is 97.8 degrees, pulse 58, respirations 18, blood pressure 122/70. General: This is an ill-appearing middle-aged male. He is in no acute distress. Head, eyes, ears, nose, and throat: Patient's head and especially the face are erythematous and swollen but there is no drainage of a yellow liquid that he had yesterday and the patient tells me that he actually feels better than he did yesterday with not as much pressure on his head and also less pain. His vision is intact. His hearing is intact. He does not have any drainage coming from any part of his head or face. Neck: No meningismus. Lungs: Clear to auscultation. Cardiovascular: Heart rate is regular. Abdomen: Soft and nontender. Neurologic: Patient is alert. He can move his extremities. He talks in the in a coherent fashion. He told me that he is feeling better today than yesterday. There is no tremor. LAB AND X-RAY: CBC shows a white count of 10,050, hemoglobin is 11.6, and platelet count is 205,000. Creatinine is 0.7, GFR is greater than 60. The patient had a spinal tap performed today in radiology. I do not have back any of the tests on the spinal fluid, but the radiologist who did the spinal tap said that the fluid he obtained from the from doing a spinal tap was clear and colorless. ASSESSMENT AND PLAN: The patient definitely has facial and head cellulitis. I am not sure if a he does have meningoencephalitis and because of the treatment, he has gotten it is clearing up. My plan is to continue the current medications that I mentioned above, namely acyclovir IV, Rocephin IV and p.o. doxycycline and then get the results from the spinal fluid that was obtained this afternoon. COMORBIDITIES: He did have a tick bite on his head and the patient's did with a tweezers try to remove the head from where the bite was on the back of the head and maybe this has something to do with the cellulitis the patient has now. The only comorbidity may have been the patient's trying to get a tick head from her 's head. He does have gastroesophageal reflux. cc: Adam Hines MD
--- NOTE | 2019-02-09 17:34 | PROGRESS NOTE ---
DATE: 02/09/2019 SUBJECTIVE: The patient states that his face is more swollen today and he has significant periorbital edema. He also still has erythema on the top of his head. OBJECTIVE: Vital Signs: Temperature 99.2 degrees, blood pressure 181/61, heart rate 88, respirations 18, O2 saturation is 99% on room air. General: This is an elderly male, lying in bed, in no acute distress. Head: The patient has erythema involving the top of his head with impetigo on the top of his head. Eyes: Significant periorbital edema noted. Heart: S1, S2 normal. Regular rate and rhythm. Lungs: Clear to auscultation bilaterally. Abdomen: Positive bowel sounds. Soft, nontender, nondistended. Extremities: No edema. No cyanosis. Neurologic: The patient is alert and oriented x3. LABS: White blood cell count 10, hemoglobin 11, hematocrit 33, platelets 205,000. Sodium 136, potassium 3.3, chloride 100, CO2 24, BUN 10, creatinine 0.7, glucose 135, calcium 8.3. ASSESSMENT AND PLAN: 1. Facial cellulitis. We will continue with the antibiotic regimen as directed by Dr. Hines. 2. Leukocytosis. Resolved. 3. Anemia. We will monitor the hemoglobin and hematocrit closely. 4. Hypokalemia. Will replace the patient's potassium. 5. Morbid obesity. Aware. cc: Hortencia Barragan MD MTDD
[2019-02-09] MEDS: LOVENOX SUBQ SCH (21:30)
[2019-02-10] MEDS: NS IV SCH ×2 (00:53→09:10)
[2019-02-10] MEDS: ZOVIRAX IV SCH ×2 (00:53→09:10)
[2019-02-10] MEDS: ROCEPHIN 2 GM in NS 50 ML IV SCH ×2 (03:10→16:51)
[2019-02-10] MEDS: BENADRYL PO PRN ×3 (03:14→23:03)
[2019-02-10] MEDS: MOTRIN PO PRN ×2 (05:31→23:03)
[2019-02-10] MEDS: ZYVOX PO SCH ×2 (05:31→17:06)
[2019-02-10] MEDS: PROTONIX PO SCH (06:18)
[2019-02-10 07:40] LABS: BASO# 0.03 X1000 (0.0-0.2); BASO% 0.2 % (0.0-0.8); EOS# 0.13 X1000 (0.0-0.7); HEMATOCRIT 34.6 % (42.0-52.0); IMM GRAN# 0.16 X1000 (0.0-0.04); IMM GRAN% 1.3 % (0.0-0.5); LYMPH# 0.83 X1000 (1.2-3.4); LYMPH% 6.6 % (20.5-51.1); MCH 30.9 PG (27-31); MCHC 34.7 g/dL (33-37); MCV 89.2 FL (81-99); MONO# 1.91 X1000 (0.11-0.59); MONO% 15.1 % (1.7-9.3); MPV 9.8 FL (7.4-10.4); NEUT# 9.57 X1000 (1.4-6.5); NEUT% 75.8 % (42.2-75.2); PLT 261 X1000 (130-400); RBC 3.88 XMIL (4.7-6.1); RDW 12.7 % (11.5-14.5); WBC 12.63 X1000 (4.8-10.8)
[2019-02-10 08:00] LABS: AGAP 10; ALB/GLOB RATIO 0.9; ALBUMIN 3.3 g/dL (3.5-5.0); ALKALINE PHOSPHATASE 76 U/L (32-122); BUN 11 mg/dL (8-22); CALCIUM 8.5 mg/dL (8.8-10.2); CHLORIDE 103 mmol/L (98-107); COSMO 275; CREATININE 0.8 mg/dL (0.7-1.2); ESTIMATED GFR > 60; GLUCOSE 134 mg/dL (70-104); GOT 30 U/L (10-34); GPT 32 U/L (10-44); POTASSIUM 3.5 mmol/L (3.5-5.1); SODIUM 137 mmol/L (136-145); TCO2 24 mmol/L (25-35); TOTAL BILIRUBIN 0.76 mg/dL (0.20-1.00); TOTAL PROTEIN 6.8 g/dL (6.3-8.3)
[2019-02-10] MEDS: LIPITOR PO SCH (09:10)
[2019-02-10] MEDS: DOXYCYCLINE PO SCH (09:10)
[2019-02-10] MEDS: NORVASC PO SCH (09:10)
--- NOTE | 2019-02-10 15:51 | INFECTIOUS DISEASE PROGRESS NO ---
DATE: 02/10/2019 PRESENT ILLNESS: Mr. Lilly has a cellulitis and edema noted to his face and head after the patient suffered a tick bite. His studies overall have been negative so far for the possibility of meningitis/encephalitis. MEDICATIONS: He has been receiving doxycycline 100 mg by mouth every 12 hours, Zyvox 600 mg g by mouth every 12 hours, ceftriaxone 2 g IV every 12 hours and acyclovir 1200 mg IV every 8 hours. PHYSICAL EXAMINATION: Vital Signs: Temperature is 98.4, pulse rate 78, respiratory rate 16, blood pressure 133/61. O2 sats 98% on room air. General: This is an acutely ill-appearing middle-aged gentleman. He is sitting up in a chair currently in no acute distress. HEENT: There is erythema from the top of his head down and covering his face with periorbital edema which he states is better today since he can see out of his left eye. Mucous membranes are pink and moist. Conjunctivae are pink. Neck: Supple. Trachea is midline. Cardiovascular: Heart rate is regular. Respiratory: Lung sounds are clear to auscultation bilaterally. No work of breathing. Abdomen: Soft, obese and nontender. Bowel sounds are active. Neurologic: He is awake, alert, oriented. Able to ambulate independently without a tremor. LABORATORY AND X-RAY: Today his white count is 12.63, hemoglobin 12, platelet count 261,000. Creatinine is 0.8. Estimated GFR is greater than 60. Total bilirubin 0.76, AST 30, ALT 32, alkaline phosphatase 76. His cerebral spinal fluid showed a WBC of 1. CSF herpes DNA by PCR is negative. The CSF meningitis encephalitis panel was negative. The tick borne disease antibody panel was also negative. Cervical spinal fluid culture is pending. The culture of this scalp is also pending, with a Gram stain showing no bacteria or yeast. Blood cultures have shown no growth since admission. No imaging reports today. ASSESSMENT AND PLAN: Mr. Lilly is being treated for a cellulitis to his face and head after sustaining a tick bite. At this point, most of the tests have come back negative and we are awaiting the final cultures. We will go ahead and discontinue the acyclovir and doxycycline, and will continue the Rocephin and Zyvox as ordered. These plans have been discussed with and recommended by Dr. Hines. COMORBIDITIES: For Mr. Lilly include obesity and gastroesophageal reflux disease. Dictated by DAVID Desouza for Adam Hines MD cc: Adam Hines MD [facility]
--- NOTE | 2019-02-10 18:01 | PROGRESS NOTE ---
DATE: 02/10/2019 SUBJECTIVE: The patient states that the cellulitis on his head is slowly getting better. He is able to open his eyes a little bit more today. OBJECTIVE: Vital Signs: Temperature 98.7, blood pressure 135/63, heart rate 72, respirations 16, O2 saturation showed 98% on room air. General: This is a morbidly obese male, lying in bed in no acute distress. Skin: There is erythema on the forehead and top of the patient's head. Heart: S1, S2 normal. Regular rate and rhythm. Lungs: Clear to auscultation bilaterally. Abdomen: Positive bowel sounds. Soft, obese, nontender, nondistended. Extremities: No edema. No cyanosis. Neurologic: The patient is alert and oriented x4. LABS: White blood cell count 12, hemoglobin 12, hematocrit 34, platelets 251. Sodium 137, potassium 3.5, chloride 100, CO2 of 24, BUN 11, creatinine 0.8, glucose 134. AST 30, ALT 32, alkaline phosphatase 76. ASSESSMENT AND PLAN: 1. Facial cellulitis with possible impetigo. Continue with antibiotic regimen. 2. Leukocytosis. Continue with antibiotic therapy. 3. Morbid obesity. Aware. 4. Deep vein thrombosis prophylaxis. Continue on Lovenox. cc: Hortencia Barragan MD
[2019-02-10] MEDS: LOVENOX SUBQ SCH (23:03)
[2019-02-11] MEDS: ROCEPHIN 2 GM in NS 50 ML IV SCH (02:17)
[2019-02-11] MEDS: PROTONIX PO SCH (06:09)
[2019-02-11] MEDS: MOTRIN PO PRN (06:09)
[2019-02-11] MEDS: BENADRYL PO PRN (06:09)
[2019-02-11] MEDS: ZYVOX PO SCH (06:09)
[2019-02-11 07:15] LABS: BASO# 0.05 X1000 (0.0-0.2); BASO% 0.5 % (0.0-0.8); EOS# 0.26 X1000 (0.0-0.7); EOS% 2.7 % (0.0-10.0); HEMATOCRIT 31.7 % (42.0-52.0); HEMOGLOBIN 10.9 g/dL (14.0-18.0); IMM GRAN# 0.29 X1000 (0.0-0.04); IMM GRAN% 3.1 % (0.0-0.5); LYMPH# 1.52 X1000 (1.2-3.4); MCH 30.9 PG (27-31); MCHC 34.4 g/dL (33-37); MCV 89.8 FL (81-99); MONO# 1.23 X1000 (0.11-0.59); MPV 9.6 FL (7.4-10.4); NEUT# 6.14 X1000 (1.4-6.5); NEUT% 64.7 % (42.2-75.2); PLT 260 X1000 (130-400); RBC 3.53 XMIL (4.7-6.1); RDW 12.9 % (11.5-14.5); WBC 9.49 X1000 (4.8-10.8)
[2019-02-11 08:27] VITALS: BP 144/71
[2019-02-11 08:56] LABS: HEMOGLOBIN A1C 3.8 % (4.8-6.0)
[2019-02-11] MEDS: NORVASC PO SCH (09:24)
[2019-02-11] MEDS: LIPITOR PO SCH (09:24)
--- NOTE | 2019-02-11 15:49 | INFECTIOUS DISEASE PROGRESS NO ---
DATE: 02/11/2019 SUBJECTIVE: The patient had initially been treated for a meningoencephalitis. He has developed severe cellulitis of the face and head, and I have been treating him with antibiotics and it looks much better. The swelling is coming way down and the erythema is clearing up. The patient is going to be discharged today. I have electronically sent a prescription for Keflex 500 mg p.o. every 8 hours for 10 days to the patient's pharmacy that he uses in [place]. I have requested that the patient come back to my office in 2 weeks, but I told him if his face and rest of his head is clearing up well, he can cancel the appointment. cc: Adam Hines MD
--- NOTE | 2019-02-15 10:57 | DISCHARGE SUMMARY ---
ADMISSION DATE: 02/07/2019 DISCHARGE DATE: 02/11/2019 FINAL DISCHARGE DIAGNOSES: 1. 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 2. Facial cellulitis. 3. Morbid obesity. 4. Hypertension. 5. Hyperlipidemia. CONSULTATIONS REQUESTED DURING THIS HOSPITAL STAY: 1. ID consultation with Dr. Hines. 2. Neurology consultation with Dr. Payne. HOSPITAL COURSE: Mr. Lilly is a 48-year-old male with a history of hypertension and hyperlipidemia, who presented to the ER with confusion and headache. On admission, the patient was noted to have a leukocytosis of 14,000. There was concern about possible inset in meningeal encephalitis. Neurology and ID were consulted, and the patient was empirically started on acyclovir, doxycycline and ceftriaxone. The patient was sent down to interventional radiology, and underwent a lumbar puncture under fluoroscopy. The CSF ultimately came back negative for any signs of infection bacterial or viral. The patient, however, did develop a facial cellulitis and so the patient's antibiotics were adjusted by Dr. Hines. Slowly over the course of the hospitalization, the patient's facial cellulitis improved. The patient was then ultimately cleared for discharge home. On 02/11/2019, the patient was sent home with a prescription for Keflex 500 mg oral every 8 hours for a total of 10 days. DISCHARGE MEDICATIONS: 1. Keflex 500 mg oral every 8 hours x10 days. 2. Flexeril 10 mg oral 3 times a day. 3. Protonix 40 mg p.o. daily. 4. Lipitor 20 mg p.o. daily. 5. Tribenzor 1 tab oral daily. DISCHARGE DIET: Low-sodium diet. ACTIVITY: As tolerated. FOLLOWUP INSTRUCTIONS: The patient will need to follow up with Dr. Hines within 2 weeks if the cellulitis is still present. cc: MD Heath Daly MD
== END 2019-02-11 14:23 | disposition home or self-care (01) | DRG 98 ==
LOC: P.ED 10:33 → 3N 10:34 → SUATTDRO 10:34
PROVIDERS: ATTEND Internal Medicine
CPT/HCPCS: 62270; 70450; 70460; 71010; 71045; 77003; 80048; 80053; 81001; 82550; 82945; 83036; 83605; 83735; 84157; 84443; 84484; 85025; 85610; 85730; 86618; 86666; 86753; 87040; 87070; 87088; 87275; 87276; 87496; 87529; 87532; 87653; 87798; 87804; 89050; 94761; 96361; 96365; 96368; 96375; 99285; A9270; J0133; J0360; J0696; J1650; J1885; J2405; J3370; J3480; J7030; J7040; J7050